=== PATIENT | female | born 1990 | race Asian ===

== ENCOUNTER 2018-08-25 07:39 | Emergency (ER) | payer SELFPAY ==
[~2018-08-25] VITALS: Ht 167.6 cm; Wt 110.0 kg
[2018-08-25 07:45] VITALS: BP 142/83
== END 2018-08-25 09:22 | disposition home or self-care (01) ==
LOC: ED 08:57
DX: G89.29 Other chronic pain (principal); M25.562 Pain in left knee
CPT/HCPCS: 29505; 99284